=== PATIENT | male | born 1995 | race American Indian/Alaskan Native ===

== ENCOUNTER 2020-03-13 00:10 | Emergency (ER) | payer SELFPAY ==
--- NOTE | 2020-03-13 01:57 | Emergency Department Report ---
ED Psych HPI - General Chief Complaint: Psych Stated Complaint: AMS/SI Time Seen by Provider: 03/13/20 01:25 Source: patient Mode of arrival: Ambulatory - History of Present Illness Initial Comments: Patient is a 24-year-old male that presents emergency room with complaints of merlos icidal ideations and depression. Patient states he was brought here by the police for running in traffic. Patient states he was running on the road because he wanted to get hit. Patient states he is been depressed. Patient states his thoughts of suicide are worsening. Patient denies homicidal i deation. Patient denies hallucinations. Patient denies recent travel. Patient denies recent international travel. Patient denies exposure to the novel coronavirus. Patient denies sick contacts. Patient denies fever and chills. Patient denies cough. Patient denies diarrhea. Patient denies coming in contact with anybody with symptoms of the novel coronavirus. MD Complaint: suicidal ideation, feels depressed -: Sudden Associated Psychiatric Symptoms: depression, suicidal ideation History of same: Yes Quality: constant Improves With: none Worsens With: none Context: significant life stressor Associated Symptoms: denies other symptoms If Self Harm: admits thoughts of, has plan, has acted on plan - Related Data Home Medications Medication Instructions Recorded Confirmed Last Taken No Known Home Medications [No 03/13/20 03/13/20 Unknown Reported Home Medications] Allergies Allergy/AdvReac Type Severity Reaction Status Date / Time No Known Allergies Allergy Unverified 03/13/20 01:15 ED Review of Systems ROS: Stated complaint: AMS/SI Other details as noted in HPI Constitutional: denies: chills, fever Eyes: denies: eye pain, eye discharge, vision change ENT: denies: ear pain, throat pain Respiratory: denies: cough, shortness of breath, wheezing Cardiovascular: denies: chest pain, palpitations Endocrine: no symptoms reported Gastrointestinal: denies: abdominal pain, nausea, diarrhea Genitourinary: denies: urgency, dysuria Musculoskeletal: denies: back pain, joint swelling, arthralgia Skin: denies: rash, lesions Neurological: denies: headache, weakness, paresthesias Psychiatric: depression, suicidal thoughts. denies: anxiety, auditory hallucinations, visual hallucinations, homicidal thoughts Hematological/Lymphatic: denies: easy bleeding, easy bruising ED Past Medical Hx - Past Medical History Previous Medical History?: Yes Hx Psychiatric Treatment: Yes (Depression, Suicidal, Bipolar) - Surgical History Past Surgical History?: No - Family History Family history: no significant - Social History Smoking Status: Never Smoker Substance Use Type: None - Medications Home Medications: Home Medications Medication Instructions Recorded Confirmed Last Taken Type No Known Home Medications [No 03/13/20 03/13/20 Unknown History Reported Home Medications] ED Physical Exam - General Limitations: No Limitations General appearance: alert, in no apparent distress - Head Head exam: Present: atraumatic, normocephalic - Eye Eye exam: Present: normal appearance - ENT ENT exam: Present: mucous membranes moist - Neck Neck exam: Present: normal inspection - Respiratory Respiratory exam: Present: normal lung sounds bilaterally. Absent: respiratory distress - Cardiovascular Cardiovascular Exam: Present: regular rate, normal rhythm. Absent: systolic murmur, diastolic murmur, rubs, gallop - GI/Abdominal GI/Abdominal exam: Present: soft, normal bowel sounds - Rectal Rectal exam: Present: deferred - Extremities Exam Extremities exam: Present: normal inspection - Back Exam Back exam: Present: normal inspection - Neurological Exam Neurological exam: Present: alert, oriented X3 - Psychiatric Psychiatric exam: Present: depressed, flat affect, suicidal ideation - Skin Skin exam: Present: warm, dry, intact, normal color. Absent: rash ED Course Vital Signs 03/13/20 03/13/20 03/13/20 01:19 01:50 08:33 Temperature 98.8 F 98.0 F Pulse Rate 65 73 Respiratory 18 20 20 Rate Blood Pressure 134/74 122/83 [Left] O2 Sat by Pulse 100 97 100 Oximetry 03/13/20 03/13/20 03/13/20 08:35 20:33 21:17 Temperature 98.0 F 98.3 F Pulse Rate 73 66 Respiratory 20 18 18 Rate Blood Pressure 122/83 112/75 [Left] O2 Sat by Pulse 100 100 100 Oximetry 03/14/20 03/14/20 01:22 07:55 Temperature 98.4 F 97.8 F Pulse Rate 78 65 Respiratory 18 20 Rate Blood Pressure 116/80 130/90 [Left] O2 Sat by Pulse 99 100 Oximetry - Reevaluation(s) Reevaluation #1: Initial evaluation done. Patient placed on a 1013. Patient also placed on a ER hold. Patient will remain in the ER. Labs will be done. 03/13/20 01:57 Reevaluation #2: Patient is medically cleared. Patient remained in ER as an ER hold. Patient is on 1013. Patient is medically clear. Patient's final disposition will come from our psychiatry team. 03/13/20 03:57 ED Medical Decision Making - Lab Data Result diagrams: 03/13/20 01:34 03/13/20 01:34 - Medical Decision Making Patient is a 24-year-old male who presents emergency room with suicidal ideations and depression. Patient had labs done which were essentially unremarkable. Patient is medically cleared. After initial evaluation, the patient was placed on ER hold and a 1013. Patient's final disposition will come from our psychiatry mental health team. - Differential Diagnosis Depression, suicidal ideation. Critical care attestation.: If time is entered above; I have spent that time in minutes in the direct care of this critically ill patient, excluding procedure time. ED Disposition Clinical Impression: Suicidal ideation Depressed Qualifiers: Depression Type: unspecified Qualified Code(s): F32.9 - Major depressive disorder, single episode, unspecified Disposition: DC/TX-65 PSY HOSP/PSY UNIT Is pt being admited?: No Does the pt Need Aspirin: No Condition: Stable Referrals: PRIMARY CARE, [Primary Care Provider] - 3-5 Days Time of Disposition: 05:00
[2020-03-13 02:12] LABS: BUN/Creatinine Ratio 12; Blood Urea Nitrogen 16 mg/dL (9-20); Calcium 9.7 mg/dL (8.4-10.2); Hemolysis Index 58
[2020-03-13 02:16] LABS: Amphetamine Screen,Urine PRESUMPTIVE NEGATIVE; Bacteria,Urine 1+ /HPF (Negative); Benzodiazepines Screen,Urine PRESUMPTIVE NEGATIVE; Bilirubin,Urine NEG (Negative); Blood,Urine NEG (Negative); Cannabinoid Screen,Urine PRESUMPTIVE POSITIVE; Cocaine Screen,Urine PRESUMPTIVE NEGATIVE; Color,Urine Straw (Yellow); Methadone Screen,Urine PRESUMPTIVE NEGATIVE; Mucus,Urine FEW /HPF; Opiate Screen,Urine PRESUMPTIVE NEGATIVE; Protein,Urine <15 mg/dL mg/dL (Negative); Urobilinogen,Urine < 2.0 mg/dL (<2.0)
[2020-03-13 02:28] LABS: Basophils % (Auto) 0.7 % (0.0-1.8); Eosinophils # (Auto) 0.1 K/mm3 (0.0-0.4); Eosinophils % (Auto) 1.8 % (0.0-4.3); Hematocrit 42.6 % (35.5-45.6); Hemoglobin 13.9 gm/dl (11.8-15.2); Lymphocytes # (Auto) 2.3 K/mm3 (1.2-5.4); Lymphocytes % (Auto) 44.6 % (13.4-35.0); Mean Corpuscular HGB Conc 33 % (32-34); Mean Corpuscular Volume 88 fl (84-94); Monocytes # (Auto) 0.5 K/mm3 (0.0-0.8); Platelet Count 268 K/mm3 (140-440); Red Blood Count 4.87 M/mm3 (3.65-5.03); Red Cell Distribution Width 14.2 % (13.2-15.2)
[2020-03-14 07:56] VITALS: BP 130/90
== END 2020-03-14 09:45 ==
LOC: EEVIPCON 00:10 → ED 00:10
DX: F32.89 Other specified depressive episodes (principal)
CPT/HCPCS: 36415; 80048; 80307; 80320; 81001; 85025; G0480

== ENCOUNTER 2020-04-10 01:54 | Emergency (ER) | payer SELFPAY ==
[2020-04-10 05:12] LABS: Basophils % (Auto) 0.5 % (0.0-1.8); Eosinophils # (Auto) 0.1 K/mm3 (0.0-0.4); Eosinophils % (Auto) 1.6 % (0.0-4.3); Hemoglobin 13.6 gm/dl (11.8-15.2); Lymphocytes # (Auto) 2.6 K/mm3 (1.2-5.4); Lymphocytes % (Auto) 35.2 % (13.4-35.0); Mean Corpuscular HGB Conc 33 % (32-34); Mean Corpuscular Volume 84 fl (84-94); Monocytes # (Auto) 0.7 K/mm3 (0.0-0.8); Monocytes % (Auto) 9.7 % (0.0-7.3); Platelet Count 249 K/mm3 (140-440); Red Blood Count 4.86 M/mm3 (3.65-5.03); Red Cell Distribution Width 13.6 % (13.2-15.2)
[2020-04-10 05:17] LABS: Bilirubin,Urine NEG (Negative); Blood,Urine NEG (Negative); Color,Urine Yellow (Yellow); Protein,Urine <15 mg/dL mg/dL (Negative); RBC,Urine < 1.0 /HPF (0.0-6.0); Urobilinogen,Urine < 2.0 mg/dL (<2.0)
[2020-04-10 05:25] LABS: Blood Urea Nitrogen 13 mg/dL (9-20); Calcium 9.6 mg/dL (8.4-10.2); Hemolysis Index 16
[2020-04-10 05:26] LABS: Amphetamine Screen,Urine PRESUMPTIVE NEGATIVE; Benzodiazepines Screen,Urine PRESUMPTIVE NEGATIVE; Cannabinoid Screen,Urine PRESUMPTIVE POSITIVE; Cocaine Screen,Urine PRESUMPTIVE NEGATIVE; Methadone Screen,Urine PRESUMPTIVE NEGATIVE; Opiate Screen,Urine PRESUMPTIVE NEGATIVE
[2020-04-10 05:28] LABS: BUN/Creatinine Ratio 19
--- NOTE | 2020-04-10 09:02 | Emergency Department Report ---
ED Psych HPI - General Chief Complaint: Psych Stated Complaint: SI Time Seen by Provider: 04/10/20 09:02 Source: patient Mode of arrival: Ambulatory - History of Present Illness Initial Comments: This is a 24-year old man who was brought in by police or EMS after running in traffic. Patient has a history of bipolar disorder. At the time my encounter they are coherent and not agitated. He states that the last psychiatric admission was last month to [facility]. Patient states that he is compliant with his current medication which he states is just Prozac. He claims that another medication was recently discontinued. He offers no other medical symptomatology. MD Complaint: suicidal ideation -: days(s) Associated Psychiatric Symptoms: other (Bipolar disorder) History of same: Yes Quality: intermittent Improves With: none Worsens With: none Context: not taking psychiatric (Possibly) Associated Symptoms: denies other symptoms If Self Harm: admits thoughts of - Related Data Home Medications Medication Instructions Recorded Confirmed Last Taken No Known Home Medications [No 03/13/20 03/13/20 Unknown Reported Home Medications] Allergies Allergy/AdvReac Type Severity Reaction Status Date / Time No Known Allergies Allergy Unverified 03/13/20 01:15 ED Review of Systems ROS: Stated complaint: SI Other details as noted in HPI Constitutional: denies: chills, fever Eyes: denies: eye pain, vision change ENT: denies: ear pain, throat pain Respiratory: denies: cough, shortness of breath Cardiovascular: denies: chest pain, palpitations Endocrine: no symptoms reported Gastrointestinal: denies: abdominal pain, nausea, diarrhea Genitourinary: denies: urgency, dysuria Musculoskeletal: denies: back pain, arthralgia Skin: denies: rash, lesions Neurological: denies: headache, weakness Psychiatric: as per HPI, suicidal thoughts Hematological/Lymphatic: denies: easy bleeding, easy bruising ED Past Medical Hx - Past Medical History Previous Medical History?: Yes Hx Psychiatric Treatment: Yes (Depression, Suicidal, Bipolar) - Surgical History Past Surgical History?: No - Social History Smoking Status: Current Every Day Smoker - Medications Home Medications: Home Medications Medication Instructions Recorded Confirmed Last Taken Type No Known Home Medications [No 03/13/20 03/13/20 Unknown History Reported Home Medications] ED Physical Exam - General Limitations: No Limitations General appearance: alert, in no apparent distress - Head Head exam: Present: atraumatic, normocephalic - Eye Eye exam: Present: normal appearance. Absent: scleral icterus - ENT ENT exam: Present: mucous membranes moist - Neck Neck exam: Present: normal inspection - Respiratory Respiratory exam: Present: normal lung sounds bilaterally. Absent: respiratory distress - Cardiovascular Cardiovascular Exam: Present: regular rate, normal rhythm. Absent: systolic murmur, diastolic murmur, rubs, gallop - GI/Abdominal GI/Abdominal exam: Present: soft, normal bowel sounds. Absent: distended, tenderness, guarding, rebound, rigid - Rectal Rectal exam: Present: deferred - Extremities Exam Extremities exam: Present: normal inspection - Back Exam Back exam: Present: normal inspection - Neurological Exam Neurological exam: Present: alert, oriented X3, CN II-XII intact. Absent: motor sensory deficit - Psychiatric Psychiatric exam: Present: normal affect, normal mood - Skin Skin exam: Present: warm, dry, intact, normal color. Absent: rash ED Course Vital Signs 04/10/20 04/10/20 03:34 09:42 Temperature 98.0 F 96.8 F L Pulse Rate 86 74 Respiratory 12 20 Rate Blood Pressure 125/83 Blood Pressure 185/116 [Left] O2 Sat by Pulse 98 97 Oximetry - Reevaluation(s) Reevaluation #1: 1013 initiated. Spoke to psychiatric PA. 04/10/20 11:09 ED Medical Decision Making - Lab Data Result diagrams: 04/10/20 03:56 04/10/20 03:56 Laboratory Results - last 24 hr 04/10/20 04/10/20 04/10/20 03:56 03:56 03:56 WBC RBC Hgb Hct MCV MCH MCHC RDW Plt Count Lymph % (Auto) [place] % (Auto) Eos % (Auto) Baso % (Auto) Lymph # (Auto) [place] # (Auto) Eos # (Auto) Baso # (Auto) Seg Neutrophils % Seg Neutrophils # Sodium 139 Potassium 4.0 Chloride 100.7 Carbon Dioxide 28 Anion Gap 14 BUN 13 Creatinine 0.7 L Estimated GFR > 60 BUN/Creatinine Ratio 19 Glucose 91 Calcium 9.6 Urine Color Urine Turbidity Urine pH Ur Specific [place] Urine Protein Urine Glucose (UA) Urine Ketones Urine Blood Urine Nitrite Urine Bilirubin Urine Urobilinogen Ur Leukocyte Esterase Urine WBC (Auto) Urine RBC (Auto) Salicylates < 0.3 L Urine Opiates Screen Urine Methadone Screen Acetaminophen 5.0 L Ur Barbiturates Screen Ur Phencyclidine Scrn Ur Amphetamines Screen U Benzodiazepines Scrn Urine Cocaine Screen U Marijuana (THC) Screen Drugs of Abuse Note Plasma/Serum Alcohol 04/10/20 04/10/20 04/10/20 03:56 03:56 04:00 WBC 7.4 RBC 4.86 Hgb 13.6 Hct 41.0 MCV 84 MCH 28 MCHC 33 RDW 13.6 Plt Count 249 Lymph % (Auto) 35.2 H [place] % (Auto) 9.7 H Eos % (Auto) 1.6 Baso % (Auto) 0.5 Lymph # (Auto) 2.6 [place] # (Auto) 0.7 Eos # (Auto) 0.1 Baso # (Auto) 0.0 Seg Neutrophils % 53.0 Seg Neutrophils # 3.9 Sodium Potassium Chloride Carbon Dioxide Anion Gap BUN Creatinine Estimated GFR BUN/Creatinine Ratio Glucose Calcium Urine Color Yellow Urine Turbidity Clear Urine pH 7.0 Ur Specific [place] 1.011 Urine Protein <15 mg/dl Urine Glucose (UA) Neg Urine Ketones Neg Urine Blood Neg Urine Nitrite Neg Urine Bilirubin Neg Urine Urobilinogen < 2.0 Ur Leukocyte Esterase Neg Urine WBC (Auto) 1.0 Urine RBC (Auto) < 1.0 Salicylates Urine Opiates Screen Urine Methadone Screen Acetaminophen Ur Barbiturates Screen Ur Phencyclidine Scrn Ur Amphetamines Screen U Benzodiazepines Scrn Urine Cocaine Screen U Marijuana (THC) Screen Drugs of Abuse Note Plasma/Serum Alcohol < 0.01 04/10/20 04:00 WBC RBC Hgb Hct MCV MCH MCHC RDW Plt Count Lymph % (Auto) [place] % (Auto) Eos % (Auto) Baso % (Auto) Lymph # (Auto) [place] # (Auto) Eos # (Auto) Baso # (Auto) Seg Neutrophils % Seg Neutrophils # Sodium Potassium Chloride Carbon Dioxide Anion Gap BUN Creatinine Estimated GFR BUN/Creatinine Ratio Glucose Calcium Urine Color Urine Turbidity Urine pH Ur Specific [place] Urine Protein Urine Glucose (UA) Urine Ketones Urine Blood Urine Nitrite Urine Bilirubin Urine Urobilinogen Ur Leukocyte Esterase Urine WBC (Auto) Urine RBC (Auto) Salicylates Urine Opiates Screen Presumptive negative Urine Methadone Screen Presumptive negative Acetaminophen Ur Barbiturates Screen Presumptive negative Ur Phencyclidine Scrn Presumptive negative Ur Amphetamines Screen Presumptive negative U Benzodiazepines Scrn Presumptive negative Urine Cocaine Screen Presumptive negative U Marijuana (THC) Screen Presumptive positive Drugs of Abuse Note Disclamer Plasma/Serum Alcohol Critical care attestation.: If time is entered above; I have spent that time in minutes in the direct care of this critically ill patient, excluding procedure time. ED Disposition Clinical Impression: Suicidal ideation, Medical clearance for psychiatric admission Bipolar disorder (manic depression) Qualifiers: Active/Remission status: currently active Current bipolar episode type: mixed Current episode severity: moderate Qualified Code(s): F31.62 - Bipolar disorder, current episode mixed, moderate Disposition: DC/TX-70 ANOTHER TYPE HLTHCARE Is pt being admited?: No Does the pt Need Aspirin: No Condition: Stable Referrals: PRIMARY CARE, [Primary Care Provider] - 3-5 Days Time of Disposition: 11:10
--- NOTE | 2020-04-10 10:14 | Consultation ---
History of Present Illness - Reason for Consult Consult date: 04/10/20 Reason for consult: MHE Requesting physician: PAKO LOWE - History of Present Psychiatric Illness Per ED Provider: This is a 24-year old man who was brought in by police or EMS after running in traffic. PSYCH HPI Patient is a single, employed -[place] male who currently resides with family with past psychiatric history of major depression who presented to the ED with chief complaint of suicidal ideation with plan to jump into traffic. Patient was brought in by EMS after being found naked outside, patient said he just want to kill himself, patient denies having any known reason or trigger, patient reported he has been dealing with depression for a long time is not hopeless, he is not hopeless, is not having financial or social stress issues but is just on the day feeling suicidal for no apparent reason. She endorses marijuana use but denies any other drug use PAST PSYCHIATRIC HISTORY Diagnoses: MDD Suicide attempts or Self-harm behavior: Yes Prior psychiatric hospitalizations: Yes few weeks ago Substance Abuse history: Marijuana Previous psychiatric medications tried: Prozac Outpatient treatment: Noncompliant PAST MEDICAL HISTORY: None reported Family Psychiatric History: None reported or documented SOCIAL HISTORY Marital Status: Single Living Arrangements: With family Employment Status: Employed as a courtesy booth cashier Access to guns/weapons: None reported Education: 11th grade History of Abuse: None reported Legal History: Yes REVIEW OF SYSTEMS Constitutional: Negative for weight loss ENT: Negative for stridor Respiratory: Negative for cough or hemoptysis All other systems reviewed and are negative MENTAL STATUS EXAMINATION General Appearance and Behavior: Age appropriate, good hygiene, wearing appropriate clothes,, good eye contact Cooperation: Participating/engaged, but Guarded Psychomotor Behavior: Psychomotor normal Mood: depressed Affect and affective range: flat Thought Process: illogical Thought Content: illogical Speech: Normal rate, volume and rythm Intellectual Functioning: Average Suicidal Ideation: SI Homicidal Ideation: Denies HI Impulse Control: Impaired Insight and Judgment: Limited insight and judgment Memory: Normal Attention: Normal Orientation: Alert, oriented Diagnoses: Assessment and Plan - Psychiatric problem (1) MDD (major depressive disorder) Current Visit: Yes Status: Acute Treatment Plan MEDICATIONS: Restart PRozac Risks, benefits and alternatives of medications discussed with the patient, questions answered and consent obtained from patient. PSYCHOTHERAPY: Supportive psychotherapy provided MEDICAL: Per primary team DELIRIUM PRECAUTIONS: Please re-orient patient frequently, keep lights on during the day, and minimize benzodiazepines and opiates as these medications could worsen patient's confusion. DUST SAMPLER: DISPOSITION: Do Recommend acute inpatient psychiatric hospitalization at this time. Case discussed with Dr. Lopez, agreess with disposition LEGAL STATUS: 1013 FOLLOW-UP: Will follow Thank you for the consult. Please contact with any questions and/or concerns. Medications and Allergies Allergies Allergy/AdvReac Type Severity Reaction Status Date / Time No Known Allergies Allergy Unverified 03/13/20 01:15 Home Medications Medication Instructions Recorded Confirmed Last Taken Type No Known Home Medications [No 03/13/20 03/13/20 Unknown History Reported Home Medications] Mental Status Exam - Vital signs Last Vital Signs Temp 96.8 F L 04/10/20 09:42 Pulse 74 04/10/20 09:42 Resp 20 04/10/20 09:42 BP 185/116 04/10/20 09:42 Pulse Ox 97 04/10/20 09:42 Results Result Diagrams: 04/10/20 03:56 04/10/20 03:56 Abnormal lab results 04/10/20 04/10/20 04/10/20 Range/Units 03:56 03:56 03:56 Lymph % (Auto) (13.4-35.0) % [place] % (Auto) (0.0-7.3) % Creatinine 0.7 L (0.8-1.3) mg/dL Salicylates < 0.3 L (2.8-20.0) mg/dL Acetaminophen 5.0 L (10.0-30.0) ug/mL 04/10/20 Range/Units 03:56 Lymph % (Auto) 35.2 H (13.4-35.0) % [place] % (Auto) 9.7 H (0.0-7.3) % Creatinine (0.8-1.3) mg/dL Salicylates (2.8-20.0) mg/dL Acetaminophen (10.0-30.0) ug/mL All other labs normal. Assessment and Plan - Psychiatric problem (1) MDD (major depressive disorder) Current Visit: Yes Status: Acute
[2020-04-10] MEDS ORDERED: ALUM-MAG HYDROXIDE-SIMETHICONE 200-200-20MG/5ML ORAL LIQD 30 ML PO PRN (11:11)
[2020-04-10] MEDS ORDERED: MAGNESIUM HYDROXIDE (MOM) ORAL LIQD UDC PO PRN (11:11)
[2020-04-10] MEDS: FLUoxetine 20 MG CAP PO SCH (12:00)
[2020-04-10] MEDS: ACETAMINOPHEN 325 MG TAB PO PRN (17:58)
[2020-04-11] MEDS: FLUoxetine 20 MG CAP PO SCH (11:07)
[2020-04-11] MEDS: ACETAMINOPHEN 325 MG TAB PO PRN (14:24)
[2020-04-12 02:35] VITALS: BP 122/81
[2020-04-12] MEDS: FLUoxetine 20 MG CAP PO SCH (10:57)
== END 2020-04-12 14:10 | disposition other institution (70) ==
LOC: ED 01:54
DX: F31.9 Bipolar disorder, unspecified (principal); F17.200 Nicotine dependence, unspecified, uncomplicated; Z04.6 Encounter for general psychiatric examination, requested by authority
CPT/HCPCS: 36415; 80048; 80307; 80320; 81001; 85025; G0480